=== PATIENT | female | born 1970 | race Caucasian/White ===

== ENCOUNTER 2017-12-19 13:37 | Observation (INO) | payer OTHER ==
[~2017-12-19] VITALS: Ht 157.5 cm; Wt 75.8 kg
[~2017-12-19 13:37] MED LIST: ALPRAZOLAM0.5 MG PO; AMBIEN10 MG PO; AVELOX400 MG PO; BUSPAR10 MG PO; CELEXA40 MG PO; COUMADIN,JANTOVE1 MG PO; COUMADIN1 MG PO; COUMADIN3 M1 PO; COUMADIN3 MG PO; ESCITALOPRAM OX10 MG PO; Flexeril PO; LAMICTAL150 M1 PO; LEXAPRO20 MG PO; MEDROL DOSEPAK4 MG PO; Maxalt PO; NORCO 5/3251 TABLET PO; ORENCIA250 MG/10 IV; OXYCODONE15 MG PO; PANTOPRAZOLE SO40 MG PO; PERCOCET 5/31 TABLET PO; PROAIR HFA8.5 GM IH; PROTONIX40 MG PO; SILVADENE20 GM TP; TRAMADOL HCL50 MG PO; ULTRAM50 MG PO; URSO FORTE500 MG PO; VALACYCLOVIR500 MG PO; VALTREX1000 MG PO; WARFARIN SODIUM6 MG PO; ZOLPIDEM TARTRA10 MG PO; Zofran ODT PO; [UNRECOGNIZED DRUG - CODE] PO
[2017-12-19 16:21] LABS: HEMATOCRIT 35.3 % (36.0-46.0); HEMOGLOBIN 12.1 G/DL (11.9-15.5); MCH 30.1 PG (29.0-34.0); MCHC 34.3 G/DL (30.0-36.0); MCV 87.8 FL (83-99); PLATELET COUNT 239 K/uL (156-360); RBC DIS.WIDTH-SD 41.7 % (39-53); RED BLOOD COUNT 4.02 M/uL (3.80-5.20)
[2017-12-19 16:31] LABS: ALBUMIN 3.7 g/dL (3.2-4.8); CHLORIDE 106 mEq/L (99-109); SODIUM 141 mEq/L (136-147)
[2017-12-19 16:34] LABS: GLUCOSE 84 mg/dL (70-99); TOTAL PROTEIN 6.5 g/dL (6.4-8.3)
[2017-12-19 16:36] LABS: TOTAL BILIRUBIN 0.4 mg/dL (0.0-1.0)
[2017-12-19 16:37] LABS: ALKALINE PHOSPHATASE 152 IU/L (3-129); CREATININE 0.8 mg/dL (0.6-1.3); GFR ESTIMATE (CALCULATED) > 59 mL/min/
[2017-12-19 16:38] LABS: UREA NITROGEN (BUN) 14 mg/dL (9-23)
[2017-12-19 16:39] LABS: AST (GOT) 31 IU/L (2-34)
[2017-12-19 16:40] LABS: ALT (GPT) 57 IU/L (3-49)
[2017-12-19] MEDS ORDERED: XANAX1 MG PO (20:56)
[2017-12-19] MEDS ORDERED: XARELTO20 MG PO (20:57)
[2017-12-19] MEDS ORDERED: LAMICTAL150 M1 PO (20:59)
[2017-12-20] MEDS ORDERED: ALPRAZOLAM1 MG PO (00:04)
[2017-12-20] MEDS ORDERED: LAMOTRIGINE100 MG PO (00:08)
[2017-12-20] MEDS ORDERED: ESCITALOPRAM OX20 MG PO (00:08)
[2017-12-20] MEDS ORDERED: ZOLPIDEM TARTRA10 MG PO (00:09)
[2017-12-20] MEDS ORDERED: VENTOLIN HFA18 GM IH (00:10)
[2017-12-20 02:13] VITALS: BP 118/63
[2017-12-20 08:00] VITALS: BP 118/70
[2017-12-20 12:28] VITALS: BP 120/66
[2017-12-20 17:07] VITALS: BP 107/55
[2017-12-20 20:00] VITALS: BP 152/72
[2017-12-20 23:58] VITALS: BP 121/19
[2017-12-21 03:22] VITALS: BP 112/63
[2017-12-21 08:22] VITALS: BP 119/59
[2017-12-21 12:27] VITALS: BP 130/63
[2017-12-21] MEDS ORDERED: KETOROLAC TROME10 MG PO (13:01)
[2017-12-21] MEDS ORDERED: AMOX TR-K CLV1 EAC4 PO (13:01)
[2017-12-21] MEDS ORDERED: PREDNISONE10 MG PO (13:06)
== END 2017-12-21 14:47 | disposition home or self-care (01) ==
LOC: EME 13:37 → EDOF 12-20 00:44 → 4SOUTH 12-20 00:44 → EDOF 12-20 00:44 → ENRESERV 12-20 00:52 → 4SOUTH 12-20 01:57
PROVIDERS: Nurse Practitioner Family
DX: J02.9 Acute pharyngitis, unspecified (principal); R50.9 Fever, unspecified; J32.9 Chronic sinusitis, unspecified; D68.51 Activated protein C resistance; Z86.718 Personal history of other venous thrombosis and embolism; Z86.711 Personal history of pulmonary embolism; F41.8 Other specified anxiety disorders; Z87.891 Personal history of nicotine dependence; Z95.828 Presence of other vascular implants and grafts; M06.9 Rheumatoid arthritis, unspecified; H92.03 Otalgia, bilateral; E04.1 Nontoxic single thyroid nodule; Z90.49 Acquired absence of other specified parts of digestive tract; Z79.01 Long term (current) use of anticoagulants; Z88.1 Allergy status to other antibiotic agents; Z88.2 Allergy status to sulfonamides
CPT/HCPCS: 70491; 80053; 85027; 87040; 99202; G0378; J2930